=== PATIENT | male | born 1970 | race Caucasian/White ===

== ENCOUNTER 2022-11-21 04:32 | Outpatient (CLI) | payer BC, SELFPAY ==
[2022-11-21 14:30] LABS: Hemoglobin A1C 5.3 % (<5.7)
[2022-11-21 14:31] LABS: ALT 33 U/L (16-63); AST 29 U/L (15-37); Albumin 4.4 g/dL (3.4-5.0); Alkaline Phosphatase 63 U/L (46-116); Anion Gap 6.8 mmol/L (3-11); BUN 20 mg/dL (7-18); Bilirubin, Total 0.8 mg/dL (0.2-1.0); CO2 29.2 mmol/L (21.0-32.0); CREATININE 1.1 mg/dL (0.70-1.30); Calcium 9.6 mg/dL (8.5-10.1); Calculated LDL 156 mg/dL (<100); Chloride 103 mmol/L (98-107); Cholesterol 217 mg/dL (<200); Estimated GFR 80.27 (mL/min/1.73m2); Glucose 93 mg/dL (74-106); HDL Cholesterol 46 mg/dL (40-60); Potassium 4.3 mmol/L (3.5-5.1); Sodium 139 mmol/L (136-145); Total Protein 7.5 g/dL (6.4-8.2); Triglyceride 78 mg/dL (<150)
[2022-11-21 14:39] LABS: Uric Acid 5.2 mg/dL (3.5-7.2)
== END 2022-11-21 04:33 | disposition home or self-care (01) ==
LOC: LBO 04:32
PROVIDERS: PCP Nurse Practitioner Family; Visit Provider Nurse Practitioner Family
DX: E78.5 Hyperlipidemia, unspecified (principal); M10.9 Gout, unspecified; F10.11 Alcohol abuse, in remission; K21.9 Gastro-esophageal reflux disease without esophagitis
CPT/HCPCS: 36415; 80053; 80061; 83036; 84550

== ENCOUNTER 2023-02-25 08:57 | Outpatient (CLI) | payer BC, SELFPAY ==
[2023-02-25 12:49] LABS: Calculated LDL 151 mg/dL (<100); Cholesterol 215 mg/dL (<200); HDL Cholesterol 45 mg/dL (40-60); Triglyceride 95 mg/dL (<150)
== END 2023-02-25 08:58 | disposition home or self-care (01) ==
LOC: LOS 08:57
PROVIDERS: PCP Nurse Practitioner Family; Visit Provider Nurse Practitioner Family
DX: E78.5 Hyperlipidemia, unspecified (principal); Z12.5 Encounter for screening for malignant neoplasm of prostate
CPT/HCPCS: 36415; 80061; 84153

== ENCOUNTER 2023-11-20 14:32 | Outpatient (CLI) | payer OTHER, SELFPAY ==
[2023-11-20 14:05] LABS: Abs Immature Grans 0.02 10^3/uL (0.0-0.06); Absolute Basophil Count 0.03 10^3/uL (0.0-0.2); Absolute Eosinophil Count 0.04 10^3/uL (0.0-0.7); Absolute Lymphocyte Count 1.57 10^3/uL (1.2-3.4); Absolute Monocyte Count 0.65 10^3/uL (0.1-0.8); Absolute Neutrophil Count 3.63 10^3/uL (1.2-6.7); Basophils % 0.5; Eosinophils % 0.7; HCT 45.4 % (40.0-50.0); HGB 15.6 g/dL (13.5-17.5); Immature Grans % 0.3; Lymphocytes % 26.4; MCH 29.1 pg (27.0-33.0); MCHC 34.4 % (32.0-36.0); MCV 85 fL (80-95); MPV 8.8 fL (8.0-11.0); Monocytes % 10.9; Neutrophils % 61.2; Platelet Count 182 10^3/uL (130-400); RBC 5.37 10^6/uL (4.36-5.78); RDW 12.5 % (11.8-14.1); RDW-SD 38.3 fL; WBC 5.94 10^3/uL (4.4-10.8)
[2023-11-20 14:27] LABS: Anion Gap 9.6 mmol/L (3-11); BUN 20 mg/dL (7-18); CO2 26.4 mmol/L (21.0-32.0); CREATININE 1.1 mg/dL (0.70-1.30); Calcium 9.6 mg/dL (8.5-10.1); Chloride 104 mmol/L (98-107); Estimated GFR 79.77 (mL/min/1.73m2); Glucose 105 mg/dL (74-106); Potassium 4.2 mmol/L (3.5-5.1); Sodium 140 mmol/L (136-145); Uric Acid 6.6 mg/dL (3.5-7.2)
[2023-11-20 22:29] LABS: Hepatitis C Ab w Rflx HCV PCR Negative (Negative)
[2023-11-22 15:35] LABS: Measles IgG Antibody Positive (See Note); Mumps Antibody IgG Positive (See Note); Rubella IgG Ab (UVM) Positive (See Note)
[2023-11-25 14:17] LABS: TB Interpretation Positive (Negative); TB1 Ag minus Nil 0.46 IU/ml; TB2 Ag minus Nil 0.57 IU/mL
[2023-11-26 18:48] LABS: HIV-1/2 Ag & Ab Screen Negative (Negative)
== END 2023-11-20 14:33 | disposition home or self-care (01) ==
LOC: LBO 14:33
PROVIDERS: PCP Nurse Practitioner Family; Visit Provider Nurse Practitioner Family
DX: K21.9 Gastro-esophageal reflux disease without esophagitis (principal); M10.9 Gout, unspecified; Z02.1 Encounter for pre-employment examination
CPT/HCPCS: 36415; 80048; 86803; 87389; 84550; 85025; 86480; 86735; 86762; 86765

== ENCOUNTER → 2023-11-27 12:43 | Outpatient (CLI) | payer OTHER, SELFPAY ==
--- NOTE | 2023-11-27 11:30 | DI.RAD_ITS ---
Exam(s) XR CHEST 2V PA LATERAL EXAM: XR CHEST 2V PA LATERAL CLINICAL HISTORY: asymptomatic suspected latent TB, positive quantiFERON TB Gold test, R76.12 TECHNIQUE: 2D digital imaging was performed. COMPARISON: No exams were available for comparison FINDINGS: HEART: Normal size. Aorta: Not dilated. PULMONARY VASCULATURE: Normal. LUNGS: Clear. PLEURAL SPACE: No pleural effusion or pneumothorax. BONE:Unremarkable for age. Soft tissues: Unremarkable. IMPRESSION: No acute abnormality. No findings to indicate acute or old healed tuberculosis. DATA REPOSITORY: RADIATION DOSE DELIVERED:
== END ==
PROVIDERS: PCP Nurse Practitioner Family; Visit Provider Nurse Practitioner Family
DX: R76.12 Nonspecific reaction to cell mediated immunity measurement of gamma interferon antigen response without active tuberculosis (principal)
CPT/HCPCS: 71046

== ENCOUNTER 2023-11-27 14:07 | Outpatient (CLI) | payer OTHER, SELFPAY ==
[2023-11-27 14:50] LABS: ALT 31 U/L (16-63); AST 28 U/L (15-37); Albumin 4.3 g/dL (3.4-5.0); Alkaline Phosphatase 57 U/L (46-116); Bilirubin, Total 0.8 mg/dL (0.2-1.0); Total Protein 7.4 g/dL (6.4-8.2)
[2023-11-27 23:03] LABS: Hepatitis C Ab w Rflx HCV PCR Negative (Negative)
[2023-11-28 10:31] LABS: Mumps Antibody IgG Positive (See Note)
[2023-11-28 10:35] LABS: Measles IgG Antibody Positive (See Note)
[2023-11-28 10:38] LABS: Rubella IgG Ab (UVM) Positive (See Note)
[2023-11-29 14:09] LABS: TB Interpretation Positive (Negative); TB1 Ag minus Nil 0.39 IU/ml; TB2 Ag minus Nil 0.49 IU/mL
== END 2023-11-27 14:08 | disposition home or self-care (01) ==
LOC: LBO 14:07
PROVIDERS: PCP Nurse Practitioner Family; Visit Provider Nurse Practitioner Family
DX: Z02.1 Encounter for pre-employment examination (principal); Z11.59 Encounter for screening for other viral diseases; Z01.84 Encounter for antibody response examination; R76.12 Nonspecific reaction to cell mediated immunity measurement of gamma interferon antigen response without active tuberculosis; E78.5 Hyperlipidemia, unspecified; M10.9 Gout, unspecified
CPT/HCPCS: 36415; 80076; 86803; 86480; 86735; 86762; 86765

== ENCOUNTER 2024-06-22 11:31 | Day surgery (SDC) | payer OTHER, SELFPAY ==
--- NOTE | 2024-06-21 16:13 | W.PM.DSUDISC ---
Date of service: 06/22/24 Time of Service: 14:28 Discharge Plan Disposition Patient Disposition: Home Condition: Good Discharge Details Reason For Visit: screening colonoscopy Attending Provider: Freddy Quesada Primary Care Provider: Amanda Jackson Home Meds and New Rx's Prescriptions: Continued zolpidem 10 mg tablet 10 mg PO QHS PRN (Reason: sleep) Qty: 30 1RF omeprazole 20 mg capsule,delayed release(DR/EC) 20 mg PO DAILY Qty: 90 3RF Discontinued bisacodyl [Dulcolax (bisacodyl)] 5 mg tablet,delayed release (DR/EC) 5 mg PO ONCE Qty: 4 0RF Rx Instructions: Take per colonoscopy instructions provided by ordering providers office polyethylene glycol 3350 17 gram/dose powder 17 g PO ONCE Qty: 238 0RF Rx Instructions: Take per colonoscopy instructions provided by ordering providers office Discharge Instructions Instructions: Colon polyps Additional Instructions: Ramon, it was a pleasure meeting you today, and I hope you are comfortable during the procedure. Again, I appreciate your patience. I did find and remove 3 polyps today. 2 of them were quite small, and the other 1 was medium in size. All of these polyps were removed without any issue, and these will be sent off to the pathologist for their evaluation. As you have experienced in the past, the nature of polyps determines the timing of the next colonoscopy. He will take a week or so for the office to get those results, but as soon as we have them we will be in touch with any other recommendations. If you have any questions at all, please do not hesitate to ask 1. If tolerated, consume a soft, low fiber diet for 1-2 days. 2[address] Do not drive, drink alcohol, operate machinery, make critical decisions, or do activities that require coordination or balance for 24 hours. 3. Because air was put into your colon during the procedure, expelling air from your rectum (passing gas or farting) is normal. 4. You may not have a bowel movement for 1-3 days because of the colonoscopy prep. This is normal. 5. Go directly to the emergency room if you notice any of the following: Develop chills (warm to touch), or if you have a thermometer and your temperature is above 101 Difficulty breathing or difficultly swallowing Persistent vomiting Severe abdominal pain, other than gas cramps Severe chest pain Black, tarry stools Any bleeding ? exceeding one tablespoon 6. Call your physician if the site where your intravenous was started becomes red, swollen, painful, and warm to touch. 7. Your physician has reviewed your pre-procedure medications. Please continue to take those medications as previously ordered. You will be given specific information/education regarding any changes to your medications before leaving. Stand Alone Forms: Anesthesia Discharge InstReji Burrell (DSU) Activity:: Activity as Tolerated Diet:: As Tolerated Discharge Orders Discharge Orders: Discharge Order (Routine); Ordered 06/21/24 Ordered By: Freddy Quesada DS: Diagnosis Discharge Diagnosis (1) Encounter for screening colonoscopy: Status: Acute Asessment and Plan: Follow-up on polypectomy results
--- NOTE | 2024-06-21 16:14 | COLE_ITS ---
Date of service: 06/22/24 Time of Service: 14:30 Colonoscopy Report Date of procedure: 06/22/24 Pre-op diagnosis general: screening colonoscopy Post-op diagnosis procedure note: other (Diverticulosis, colon polyps) Procedure: Colonoscopy with polypectomy Surgeon: Freddy Quesada Anesthesia Type: General:No Airway Estimated blood loss (mL): 5 Pathology: other (0.25 cm polyp at 70 cm, 0.25 cm polyp at 30 cm, 0.5 cm polyp at 20 cm) Complications: None Disposition: same day Indications: Ramon is a 54 year old man who needs a screening colonoscopy Prep: Miralax/Dulcolax Procedure Start Time: 14:00 Procedure End Time: 14:05 Retraction Time: 14 Findings: Just a few sigmoid diverticula, 0.5 cm polyp in the ascending colon measuring approximately 140 cm from the anus, inflammatory polyp around 20 cm from the anus Procedure Description: After the induction of anesthesia, and with the patient in left lateral decubitus position, I began by performing an external anorectal exam.? Perineum and skin were normal, as was the anal verge.? There was no evidence of external hemorrhoids.? Next, I performed a digital rectal exam.? I did not appreciate any abnormal findings.? Next, I advanced a colonoscope into the rectal vault.? I per formed retroflexion.? This appeared normal.? Using insufflation, I then advanced the colonoscope beyond the rectal folds and into the sigmoid colon before advancing towards the cecum.? The quality of the prep was excellent.? The scope was noted to be in the cecum by identification of the ileocecal valve and appendiceal orifice.? I then began withdrawing the colonoscope using repeated irrigation as necessary for full evaluation of the colonic mucosa. Around 70 cm from the anal verge I identified a 0.25 cm polyp. ?It appeared flat in character. ?I was able to remove this with a cold forcep polypectomy. ?I examined the site, and there was minimal bleeding. ?Once this was completed, I continued to withdraw the scope and examine the remainder of the colonic mucosa. Another 0.25 cm polyp was found around 30 cm from the anus. This was removed with cold forceps in a manner similar to the first. Finally, around 20 cm from the anus was 1 more polyp. This was also flat in nature. It was about 0.5 cm in its largest dimension this was removed with cold snare polypectomy. There was minimal bleeding. Once the scope was withdrawn to the level of the rectum, great care was taken to examine portions of the rectal folds.? Finally, the scope was withdrawn and the patient was brought to the same-day surgery recovery unit as the anesthetic wore off. ?The findings and instructions were shared with the patient prior to discharge. Mcgehee Bowel Prep Mcgehee Bowel Prep Right Colon: 3 Left Colon: 3 Transverse Colon: 3 Total Score: 9
[2024-06-22 12:00] VITALS: BP 146/99; PULSE 89; RESP 16; TEMP 36.4; O2SAT 96
[2024-06-22] MEDS: Lactated Ringers 1,000 ML 80 ML IV (12:30)
[2024-06-22 13:44] VITALS: BMI 32.3
--- NOTE | 2024-06-22 13:44 | W.ANESPRE ---
General Info Date of Service Date Performed: 06/22/24 Height: 5 ft 9 in Weight: 99.427 kg Body Mass Index (BMI): 32.3 Surgical Procedure: Operation Date: 06/22/24 13:05 Proposed Procedure Side Surgeon p Holly Quesada MD Meds Allergies and Home Medications Allergies Allergy/AdvReac Type Severity Reaction Status Date / Time No Known Allergies Allergy Verified 06/22/24 12:08 Home Medication ?Medication ?Instructions ?Recorded omeprazole 20 mg capsule,delayed 20 mg PO DAILY #90 caps 11/21/23 release zolpidem 10 mg tablet 10 mg PO QHS PRN sleep #30 tabs 03/02/24 Current Visit Medications: Current Medications Generic Name Dose Route Start Last Admin Trade Name Freq PRN Reason Stop Dose Admin Ringer's Solution 1,000 mls @ 80 mls/hr 06/22/24 06:00 06/22/24 12:30 IV 07/19/24 23:59 80 mls/hr INFUSION KARMA Administration IV Miscellaneous Supplies 1 each 06/22/24 06:00 Iv Access IV 07/19/24 23:59 DIRECTED KARMA Ondansetron HCl 4 mg 06/21/24 16:30 Ondansetron 4 Mg/2 Ml Vial IVP 07/21/24 16:29 Q4H PRN PRN Nausea / Vomiting Sodium Chloride 0 ml 06/22/24 06:00 Normal Saline Flush 10 Ml Syr IV 07/19/24 23:59 PRN PRN Sodium Chloride 0 ml 06/22/24 06:00 Normal Saline 10 Ml Vial IJ 07/19/24 23:59 DIRECTED PRN Sterile Water 0 ml 06/22/24 06:00 Water,Injection,Sterile 10 Ml Vial IJ 07/19/24 23:59 DIRECTED PRN PFSH Active Problems Active Problems: Problem Status Onset Code Encounter for screening colonoscopy Acute Z12.11 Positive QuantiFERON-TB Gold test Chronic ~11/2023 R76.12 Hyperlipidemia Chronic E78.5 GERD (gastroesophageal reflux disease) Chronic K21.9 Insomnia Chronic G47.00 Chronic pain of both shoulders Chronic M25.511, M25.512, G89.29 Osteoarthritis Chronic M19.90 Obesity (BMI 30.0-34.9) Chronic E66.9 Medical History Medical History Hx of gastroesophageal reflux (GERD) Gout patient states not anymore Alcohol abuse, in remission Surgical History Surgical History S/P knee surgery Bilateral knee surgery, believes meniscus repair on left and right ?tendon repair S/P colonoscopy Tobacco Smoking/Tobacco Use Status: Never Passive smoking exposure: Yes Second hand exposure: Yes Alcohol Alcohol Intake: former Substance Use Substance use: Never Vital Signs and Lab Results Vital Signs Most Recent Vital Signs in EMR: Most Recent Vital Signs Temp Pulse Resp BP Pulse Ox 36.4 C L 89 16 146/99 H 96 06/22/24 12:00 06/22/24 12:00 06/22/24 12:00 06/22/24 12:00 06/22/24 12:00 Lab Results Blood Type / Crossmatch: No Data to Display Complete Blood Count: No Data to Display Complete Metabolic Panel: No Data to Display Liver Function Panel: No Data to Display Coagulation Panel: No Data to Display Cardiac Panel: No Data to Display Arterial Blood Gas: No Data to Display Venous Blood Gas: No Data to Display Pancreas Panel: No Data to Display Thyroid Panel: No Data to Display Infectious Disease: No Data to Display Blood Cultures: No Data to Display Toxicology Panel: No Data to Display Anesthesia Assessment and Plan Anesthesia History Personal History: No History of Anesthesia Complications Family History: No Family History of Anesthesia Complications Exercise Tolerance Exercise Tolerance: Metabolic Equivalents>4 Pertinent Negatives Pertinent Negatives: No Major Cardiovascular Symptoms or Complaints, No Major Pulmonary Symptoms or Complaints and No History of CVA/TIA Cardiac & Pulmonary Exam Cardiac Exam: Normal S1/S2 Heart Sounds Pulmonary Exam: Clear Bilateral Breath Sounds Implantable Cardiac Device Does patient have a Pacemaker or an ICD?: No Airway Exam Known Difficult Airway: No Mallampati Class: 2 Mouth Opening: Normal (> 3cm) Thyromental Distance: Greater than 3 cm Neck Range of Motion: Full ROM Neck Circumference: Normal Teeth Condition: Normal Dentition ASA Classification ASA Score: ASA 2 Emergency Case?: No NPO Status NPO Status: NPO Clears >2 hours, Solids >8 hours Anesthesia Plan Resuscitation Status: Full Code Anesthesia Technique: General Anesthesia Airway Planned: Natural Airway Monitors Used: Standard Monitors
--- NOTE | 2024-06-22 14:10 | BOWEL_PTH ---
PATIENT: Ramon Field II LOC: [facility] U#:[id number] AGE/SX: 54/M ROOM: RE06/22/[address]: Freddy Quesada MD : [id number] BED: DIS: 06/22/2024 SPEC #: [id number] RECD: 06/22/24 18:18 STATUS: RADHA RE #: [id number] SANTI: 06/22/24 14:[address]: Freddy Quesada DEPT: Surgical Specimen RECD BY: Kami Saleem ENTERED: 06/22/24 18:19 SP TYPE: Bowel OTHR DR: Amanda Jackson, SCARLETT Tissues: 1 - BIOPSY BOWEL 2 - BIOPSY BOWEL 3 - BIOPSY BOWEL Procedures: GROSS AND MICRO LEVEL 4 Comments: [id number]
[2024-06-22 14:22] VITALS: BP 125/87; PULSE 79; RESP 16; TEMP 36.4; O2SAT 96
--- NOTE | 2024-06-22 14:53 | W.ANESPOSTOP ---
Postoperative Evaluation Date, Time and Location Date Performed: 06/22/24 Time Performed: 14:25 Patient Location: Day Surgery Unit Vital Signs Most Recent Imported Vital Signs: Most Recent Vital Signs Temp Pulse Resp BP Pulse Ox 36.4 C L 79 16 125/87 96 06/22/24 14:22 06/22/24 14:22 06/22/24 14:22 06/22/24 14:22 06/22/24 14:22 Pain Score Most Recent Pain Score: Most Recent Pain Score Pain Level 0 06/22/24 14:22 Assessment Mental Status: Awake (Alert & Oriented to Patient Baseline) Airway and Respiratory Function: Patent airway with normal (patient baseline) respiratory exam Cardiovascular Function: Hemodynamically Stable Hydration Status: Adequately Hydrated Nausea & Vomiting: No Nausea or Vomiting Pain: Pt. Denies Any Pain Peripheral Nerve Block: Patient did not receive a nerve block
[2024-06-22 14:55] VITALS: BP 121/91; PULSE 78; RESP 16; TEMP 36.8; O2SAT 97
== END 2024-06-22 15:15 | disposition home or self-care (01) ==
LOC: SUR 11:31
PROVIDERS: PCP Nurse Practitioner Family; Visit Provider Surgery
PROC: 0DJD8ZZ Inspection of Lower Intestinal Tract, Via Natural or Artificial Opening Endoscopic (ICD-10-PCS; CPT 45378; principal; 2024-06-22 13:00)
DX: Z12.11 Encounter for screening for malignant neoplasm of colon (principal); D12.4 Benign neoplasm of descending colon; K57.30 Diverticulosis of large intestine without perforation or abscess without bleeding; D12.5 Benign neoplasm of sigmoid colon
CPT/HCPCS: 45385; 45380; 88305; J2001; J2704

== ENCOUNTER 2025-03-17 09:25 | Outpatient (CLI) | payer OTHER, SELFPAY ==
[2025-03-17 09:44] LABS: Abs Immature Grans 0.02 10^3/uL (0.0-0.06); Absolute Basophil Count 0.03 10^3/uL (0.0-0.2); Absolute Eosinophil Count 0.12 10^3/uL (0.0-0.7); Absolute Lymphocyte Count 1.34 10^3/uL (1.2-3.4); Absolute Monocyte Count 0.51 10^3/uL (0.1-0.8); Absolute Neutrophil Count 2.29 10^3/uL (1.2-6.7); Basophils % 0.7 %; Eosinophils % 2.8 %; HCT 47.2 % (40.0-50.0); HGB 15.9 g/dL (13.5-17.5); Immature Grans % 0.5 %; Lymphocytes % 31.1 %; MCH 28.4 pg (27.0-33.0); MCHC 33.7 % (32.0-36.0); MCV 84 fL (80-95); MPV 8.8 fL (8.0-11.0); Monocytes % 11.8 %; Neutrophils % 53.1 %; Platelet Count 164 10^3/uL (130-400); RBC 5.59 10^6/uL (4.36-5.78); RDW 12.8 % (11.8-14.1); RDW-SD 39.7 fL; WBC 4.31 10^3/uL (4.4-10.8)
[2025-03-17 09:54] LABS: Hemoglobin A1C 5.6 % (<5.7)
[2025-03-17 10:18] LABS: ALT 32 U/L (16-63); AST 26 U/L (15-37); Albumin 4.2 g/dL (3.4-5.0); Alkaline Phosphatase 62 U/L (46-116); Anion Gap 4.7 mmol/L (3-11); BUN 12 mg/dL (7-18); Bilirubin, Total 0.9 mg/dL (0.2-1.0); CO2 29.3 mmol/L (21.0-32.0); Calcium 9.3 mg/dL (8.5-10.1); Chloride 102 mmol/L (98-107); Estimated GFR 88.33 (mL/min/1.73m2); Glucose 105 mg/dL (74-106); Potassium 4.4 mmol/L (3.5-5.1); Sodium 136 mmol/L (136-145); Total Protein 7.8 g/dL (6.4-8.2)
[2025-03-17 10:19] LABS: Calculated LDL 203 mg/dL (<100); Cholesterol 279 mg/dL (<200); HDL Cholesterol 45 mg/dL (>or=40); Triglyceride 158 mg/dL (<150)
[2025-03-17 18:17] LABS: PSA, Screening 1.1 ng/mL (<=3.5)
== END 2025-03-17 09:26 | disposition home or self-care (01) ==
LOC: LBO 09:25
PROVIDERS: Nurse Practitioner Family; PCP Nurse Practitioner Family; Visit Provider Internal Medicine Infectious Disease
DX: Z13.1 Encounter for screening for diabetes mellitus (principal); Z12.5 Encounter for screening for malignant neoplasm of prostate; Z13.220 Encounter for screening for lipoid disorders
CPT/HCPCS: 36415; 80053; 80061; 84153; 83036; 85025

== ENCOUNTER 2025-03-31 03:16 | Outpatient (CLI) | payer OTHER, SELFPAY ==
[2025-03-31 12:14] LABS: Abs Immature Grans 0.06 10^3/uL (0.0-0.06); Absolute Basophil Count 0.03 10^3/uL (0.0-0.2); Absolute Eosinophil Count 0.09 10^3/uL (0.0-0.7); Absolute Lymphocyte Count 1.24 10^3/uL (1.2-3.4); Absolute Monocyte Count 0.54 10^3/uL (0.1-0.8); Absolute Neutrophil Count 2.24 10^3/uL (1.2-6.7); Basophils % 0.7 %; Eosinophils % 2.1 %; HGB 14.9 g/dL (13.5-17.5); Immature Grans % 1.4 %; Lymphocytes % 29.5 %; MCH 28.5 pg (27.0-33.0); MCHC 33.9 % (32.0-36.0); MCV 84 fL (80-95); MPV 9.4 fL (8.0-11.0); Monocytes % 12.9 %; Neutrophils % 53.4 %; Platelet Count 154 10^3/uL (130-400); RBC 5.22 10^6/uL (4.36-5.78); RDW 12.8 % (11.8-14.1); RDW-SD 39.4 fL
[2025-03-31 12:50] LABS: ALT 38 U/L (16-63); AST 33 U/L (15-37); Albumin 4.2 g/dL (3.4-5.0); Alkaline Phosphatase 56 U/L (46-116); Anion Gap 11.7 mmol/L (3-11); BUN 17 mg/dL (7-18); Bilirubin, Total 0.9 mg/dL (0.2-1.0); CO2 25.3 mmol/L (21.0-32.0); CREATININE 0.9 mg/dL (0.70-1.30); Calcium 8.8 mg/dL (8.5-10.1); Chloride 105 mmol/L (98-107); Estimated GFR 100.24 (mL/min/1.73m2); Glucose 98 mg/dL (74-106); Sodium 142 mmol/L (136-145); Total Protein 7.4 g/dL (6.4-8.2)
== END 2025-03-31 03:17 | disposition home or self-care (01) ==
LOC: LBO 03:16
PROVIDERS: PCP Nurse Practitioner Family; Visit Provider Internal Medicine Infectious Disease
DX: Z22.7 Latent tuberculosis (principal); Z79.2 Long term (current) use of antibiotics
CPT/HCPCS: 36415; 80053; 85025

== ENCOUNTER 2025-04-12 01:22 | Outpatient (CLI) | payer OTHER, SELFPAY ==
--- NOTE | 2025-04-12 06:45 | DI.RAD_ITS ---
Exam(s) XR FOOT RT COMPLETE EXAM: XR FOOT RT COMPLETE CLINICAL HISTORY: Right foot painful cyst,rt foot pain,m79.671. TECHNIQUE: 2D digital imaging was performed. Three views. COMPARISON: No exams were available for comparison FINDINGS: BONES: No acute fracture is present. No bony destructive lesion is seen. Minimal plantar calcaneal spur. Small calcification distal Achilles tendon. JOINTS: No dislocation present. Joint spaces are maintained. SOFT TISSUE: Normal. IMPRESSION: No visible soft tissue mass or suspicious bony lesion. DATA REPOSITORY: RADIATION DOSE DELIVERED:
== END 2025-04-12 01:42 ==
LOC: DI 01:23
PROVIDERS: PCP Nurse Practitioner Family; Visit Provider Podiatrist
DX: M79.671 Pain in right foot (principal)
CPT/HCPCS: 73630

== ENCOUNTER 2025-05-05 02:36 | Outpatient (CLI) | payer OTHER, SELFPAY ==
[2025-05-05 13:47] LABS: Abs Immature Grans 0.03 10^3/uL (0.0-0.06); HCT 46.7 % (40.0-50.0); HGB 15.9 g/dL (13.5-17.5); Immature Grans % 0.6 %; MCH 28.6 pg (27.0-33.0); MCHC 34.0 % (32.0-36.0); MCV 84 fL (80-95); MPV 8.8 fL (8.0-11.0); Platelet Count 163 10^3/uL (130-400); RBC 5.56 10^6/uL (4.36-5.78); RDW 12.6 % (11.8-14.1); RDW-SD 38.5 fL; WBC 5.17 10^3/uL (4.4-10.8)
[2025-05-05 14:16] LABS: ALT 40 U/L (16-63); AST 43 U/L (15-37); Albumin 4.4 g/dL (3.4-5.0); Alkaline Phosphatase 70 U/L (46-116); Bilirubin, Direct 0.2 mg/dL (0.0-0.2); Bilirubin, Total 0.9 mg/dL (0.2-1.0); Total Protein 7.9 g/dL (6.4-8.2)
== END 2025-05-05 02:37 | disposition home or self-care (01) ==
PROVIDERS: PCP Nurse Practitioner Family; Visit Provider Internal Medicine Infectious Disease
DX: Z22.7 Latent tuberculosis (principal); Z79.2 Long term (current) use of antibiotics
CPT/HCPCS: 36415; 80076; 85025

== ENCOUNTER 2025-05-26 03:51 | Outpatient (CLI) | payer OTHER, SELFPAY ==
[2025-05-26 11:42] LABS: ALT 32 U/L (16-63); AST 35 U/L (15-37); Albumin 4.2 g/dL (3.4-5.0); Alkaline Phosphatase 63 U/L (46-116); Bilirubin, Direct 0.2 mg/dL (0.0-0.2); Bilirubin, Total 0.8 mg/dL (0.2-1.0); Total Protein 7.6 g/dL (6.4-8.2)
== END 2025-05-26 03:52 | disposition home or self-care (01) ==
LOC: LBO 03:51
PROVIDERS: PCP Nurse Practitioner Family; Visit Provider Internal Medicine Infectious Disease
DX: Z22.7 Latent tuberculosis (principal)
CPT/HCPCS: 36415; 80076

== ENCOUNTER 2025-07-02 01:09 | Outpatient (CLI) | payer OTHER, SELFPAY ==
[2025-07-02 07:41] LABS: Abs Immature Grans 0.02 10^3/uL (0.0-0.06); HCT 45.4 % (40.0-50.0); HGB 15.9 g/dL (13.5-17.5); Immature Grans % 0.5 %; MCH 29.4 pg (27.0-33.0); MCHC 35.0 % (32.0-36.0); MCV 84 fL (80-95); MPV 8.9 fL (8.0-11.0); Platelet Count 170 10^3/uL (130-400); RBC 5.40 10^6/uL (4.36-5.78); RDW 12.1 % (11.8-14.1); RDW-SD 36.8 fL; WBC 4.11 10^3/uL (4.4-10.8)
[2025-07-02 08:28] LABS: ALT 32 U/L (16-63); AST 34 U/L (15-37); Albumin 4.1 g/dL (3.4-5.0); Alkaline Phosphatase 57 U/L (46-116); Bilirubin, Direct 0.1 mg/dL (0.0-0.2); Bilirubin, Total 0.4 mg/dL (0.2-1.0); Total Protein 7.5 g/dL (6.4-8.2)
== END 2025-07-02 01:10 | disposition home or self-care (01) ==
LOC: LBO 01:09
PROVIDERS: PCP Nurse Practitioner Family; Visit Provider Internal Medicine Infectious Disease
DX: Z22.7 Latent tuberculosis (principal)
CPT/HCPCS: 36415; 80076; 85025